=== PATIENT | male | born 1970 | race Caucasian/White ===

== ENCOUNTER 2024-11-21 11:04 | Outpatient (CLI) | payer BC, SELFPAY ==
[2024-11-21 21:42] LABS: Creatinine Urine 94.6 mg/dL
[2024-11-21 21:49] LABS: Microalbumin Creatinine Ratio 40 mg/g (0-30); Microalbumin Urine 4 mg/dL
== END 2024-11-21 11:05 | disposition home or self-care (01) ==
PROVIDERS: PCP Family Medicine; Visit Provider Family Medicine
DX: E13.9 Other specified diabetes mellitus without complications (principal); E78.5 Hyperlipidemia, unspecified; R63.4 Abnormal weight loss; Z12.5 Encounter for screening for malignant neoplasm of prostate
CPT/HCPCS: 80053; 80061; 82043; 82570; 84439; 84443; 87086; G0103

== ENCOUNTER 2025-02-25 13:08 | Outpatient (CLI) | payer BC, SELFPAY | END 2025-02-25 13:09 | disposition home or self-care (01) | LOC: AMB 02-28 10:17 | PROVIDERS: PCP Family Medicine; Visit Provider Family Medicine | DX: R06.09 Other forms of dyspnea (principal) | CPT/HCPCS: A0425; A0427 ==

== ENCOUNTER 2025-02-25 13:54 | Emergency (ER) | payer BC, SELFPAY ==
[2025-02-25] VITALS (18 sets, daily range): BP systolic 101–140; BP diastolic 70–91; PULSE 115–122; RESP 10–40; TEMP 36.4; O2SAT 88–100; BMI 18.6
--- NOTE | 2025-02-25 14:20 | CRLHL7_ITS ---
For Patients: As a result of the Cures Act, medical imaging exams and procedure reports are released immediately into your electronic medical record. You may view this report before your referring provider. If you have questions, please contact your health care provider. INDICATION: Shortness of breath TECHNIQUE: Chest radiograph 1 view COMPARISON: None FINDINGS: Mediastinum: The mediastinum is normal in appearance. The heart silhouette is normal in size and morphology. Lung: Both lungs are unremarkable in appearance. No sign of pleural effusion seen. No pneumothorax is identified. Bone and Soft tissue: Chronic appearing fracture deformities of the left posterior 7th and 8th ribs are noted. IMPRESSION: 1. No acute cardiopulmonary disease is seen. Dictated by Todd Rick MD @ 02/25/2025 3:39:37 PM Dictated by: Todd Rick MD @ 02/25/2025 15:39:40 (Electronically Signed)
[2025-02-25] MEDS: IPRAT-ALBUT 0.5-2.5 MG/3 ML NEB 1 NEB IH (14:29)
[2025-02-25 15:04] LABS: Hematocrit 42.2 % (37.0-53.0); Hemoglobin* 13.6 gm/dL (13.5-17.5); Immature Granulocytes Pct Auto 1.1 %; Mean Corpuscular HGB Conc 32 gm/dL (32-36); Mean Corpuscular Hemoglobin 29 pg (26-34); Mean Corpuscular Volume 89 fL (80-100); RDW Coefficient of Variation % 12.2 % (11.5-15.5); Red Blood Count 4.73 m/uL (4.30-5.90); White Blood Count* 11.51 K/uL (4.50-11.00)
[2025-02-25 15:17] LABS: HCO3 VBG 28 mmol/L (21-28); PCO2 VBG 55 mmHG (40-50); PO2 VBG < 30.1 mmHG (25-47); pH VBG 7.319 (7.32-7.43)
[2025-02-25 15:18] LABS: Chloride* 104 mmol/L (96-114)
[2025-02-25 15:19] LABS: Potassium* 4.4 mmol/L (3.6-5.1); Sodium* 140 mmol/L (135-149)
[2025-02-25 15:21] LABS: Blood Urea Nitrogen* 20 mg/dL (7-30); Creatinine* 0.7 mg/dL (0.5-1.5); Est. Creatinine Clearance* 82.21; Estimated Glomerular Filt Rate 110 ml/min
[2025-02-25 15:22] LABS: Anion Gap 6 mEq/L (7-15); Calcium* 9.4 mg/dL (8.4-10.6); Carbon Dioxide* 30 mmol/L (20-32); Glucose* 55 mg/dL (60-115)
[2025-02-25 15:24] LABS: Immature Granulocytes Abs Auto 0.10 K/uL (0.00-0.30); Lymphocytes Absolute Auto 1.80 K/uL (0.90-2.90); Slide Review Reflex No
--- NOTE | 2025-02-25 15:24 | CRLHL7_ITS ---
For Patients: As a result of the Century Cures Act, medical imaging exams and procedure reports are released immediately into your electronic medical record. You may view this report before your referring provider. If you have questions, please contact your health care provider. INDICATION: SOB, ELEVATED D-DIMER. TECHNIQUE: CT chest PE was acquired with 95 cc Isovue 370 IV contrast. COMPARISON: None. FINDINGS: Heart and vasculature: Contrast opacification of the pulmonary arterial tree is adequate. No sign of pulmonary embolism. Heart size is normal. Thoracic aorta and pulmonary artery are normal in caliber. Lungs and pleura: Scattered sub 5 millimeter pulmonary nodules bilaterally, favored to be infectious inflammatory in etiology.. Central bronchial wall thickening. Mild mucous plugging. No pleural effusions, pleural thickening, or pneumothorax. Lymph nodes/mediastinum: No mediastinal, hilar, or axillary adenopathy. Chest wall: No masses. Upper abdomen: No acute or significant findings. Mild distal esophageal wall thickening. Bones: Unremarkable for age. Multiple old left-sided rib fractures. IMPRESSION: 1. No pulmonary embolism identified. 2. Mild central bronchial wall thickening and mucus plugging may reflect viral illness or other airways disease. Please note that all CT scans at this facility use dose modulation, iterative reconstruction, and/or weight-based dosing when appropriate to reduce radiation dose to as low as reasonably achievable. Dictated by Lennox Arvizu MD @ 02/25/2025 4:29:46 PM (Electronically Signed)
[2025-02-25 15:34] LABS: D Dimer Quantitative* < 0.27 ug/ml (0.00-0.50)
[2025-02-25 15:34] LABS: NT Pro B Type NatriureticPept* 227 pg/mL (See Note)
--- NOTE | 2025-02-25 15:37 | ED.GENADULT ---
HPI - General Adult General Date Seen: 02/25/25 Chief complaint: Shortness of Breath/Dyspnea Stated complaint: Difficulty breathing Time Seen by Provider: 02/25/25 14:08 History of Present Illness HPI narrative: Patient is a 54-year-old here with significant other for evaluation of shortness of breath. He has got a chronic cough and chronic nasal congestion but developed wheezing and shortness of breath today. His partner says that this is typical for him when he gets sick. They tried his inhaler x2 at home but it did not seem to help and so he presents for evaluation. He has type 1 diabetes, says his blood sugars have been running okay. He has not had fevers, denies chest pain. He says he was severely short of breath at home, he felt like he was ?going to take his last breath. He has a diagnosis of mild intermittent asthma in the computer although his partner says that he does not really carry a diagnosis of asthma he just wheezes when he gets sick. Related Data Home Medications ?Medication ?Instructions ?Recorded ?Confirmed aspirin 81 mg tablet,delayed 81 mg PO QDAY 07/28/22 02/25/25 release diphenhydramine HCl 25 mg tablet 50 mg PO BID 11/21/24 02/25/25 (Benadryl Allergy) epinephrine 0.125 mg/actuation 1 puff inhalation Q6H PRN 11/21/24 02/25/25 aerosol inhaler (Primatene Mist) multivitamin 1 tab PO QDAY 11/21/24 02/25/25 Previous Rx's ?Medication ?Instructions ?Recorded insulin aspart U-100 100 unit/mL See Rx Instructions subcut TID #15 11/21/24 (3 mL) subcutaneous pen mL insulin glargine 100 unit/mL 15 unit (0.15 mL) subcut QDAY #20 11/21/24 subcutaneous solution (Lantus mL U-100 Insulin) Diabetic Test Strips #400 ea 11/22/24 blood-glucose meter #1 ea 11/22/24 lancets #400 ea 11/22/24 rosuvastatin 10 mg tablet 10 mg PO QDAY #90 tabs 11/22/24 albuterol sulfate 90 mcg/actuation 2 puff inhalation Q4H PRN 01/08/25 aerosol inhaler shortness of breath or wheezing #8.5 grams Allergies Allergy/AdvReac Type Severity Reaction Status Date / Time No Known Drug Allergies Allergy Verified 02/25/25 15:52 Review of Systems Status of ROS: Reports: 10 or more systems reviewed and unremarkable except as noted in History and below [facility] Social History Smoking Status: Never smoker Do you use any of these nicotine containing products: None Second hand tobacco smoke exposure: No How often do you have a drink containing alcohol: monthly or less AUDIT-C Alcohol total score: 1 Non-prescribed substance use: denies use service: No Exam Narrative: Exam Narrative: Vital signs reviewed In general, alert, nontoxic middle-age male. Thin, somewhat dyspneic. Head: Normocephalic, atraumatic. Eyes: Sclera clear. Pupils equal and reactive. ENT: Mucous membranes moist. Neck: Supple without adenopathy. Heart: Regular rate and rhythm without murmur. Lungs: Breath sounds are diffusely a little decreased and tight. Occasional wheeze. Abdomen: Soft, nontender to palpation. Extremities: Well perfused, pulses intact. No significant edema. Neurologic: Alert, conversant. Speech fluent, face symmetric. Moves all extremities equally. Skin: Warm, dry well perfused. Affect: Normal. Const: Vital Signs, click to edit/add: Vital Signs - 24 hr 02/25/25 14:00 02/25/25 14:02 02/25/25 14:20 Temperature 97.5 F L Pulse Rate Pulse Rate [Right Pulse Oximeter] 116 H 116 H Respiratory Rate 24 28 H Blood Pressure Blood Pressure [Le ft Upper Arm] 140/91 H 140/91 H Pulse Oximetry 97 94 97 Oxygen Delivery Me thod Nasal Cannula Nasal Cannula Oxygen Flow Rate 2 4 02/25/25 14:20 02/25/25 14:30 02/25/25 14:37 Temperature Pulse Rate 122 H Pulse Rate [Right Pulse Oximeter] Respiratory Rate 18 Blood Pressure Blood Pressure [Le ft Upper Arm] Pulse Oximetry 88 97 100 Oxygen Delivery Me thod Room Air Nasal Cannula Nasal Cannula Oxygen Flow Rate 2 2 02/25/25 14:45 02/25/25 15:00 02/25/25 15:15 Temperature Pulse Rate 120 H Pulse Rate [Right Pulse Oximeter] Respiratory Rate 24 21 15 Blood Pressure Blood Pressure [Le ft Upper Arm] Pulse Oximetry 94 Oxygen Delivery Me thod Room Air Oxygen Flow Rate 02/25/25 15:30 02/25/25 15:50 02/25/25 15:51 Temperature Pulse Rate 119 H 119 H Pulse Rate [Right Pulse Oximeter] Respiratory Rate 23 40 H 14 Blood Pressure 120/70 Blood Pressure [Le ft Upper Arm] Pulse Oximetry 94 96 Oxygen Delivery Me thod Room Air Oxygen Flow Rate 02/25/25 16:00 02/25/25 16:01 02/25/25 16:02 Temperature Pulse Rate 117 H 117 H 117 H Pulse Rate [Right Pulse Oximeter] Respiratory Rate 13 14 13 Blood Pressure 101/72 Blood Pressure [Le ft Upper Arm] Pulse Oximetry 95 95 95 Oxygen Delivery Me thod Oxygen Flow Rate 02/25/25 16:15 02/25/25 16:30 02/25/25 16:45 Temperature Pulse Rate 116 H 115 H Pulse Rate [Right Pulse Oximeter] Respiratory Rate 10 L 15 20 Blood Pressure Blood Pressure [Le ft Upper Arm] Pulse Oximetry 95 93 Oxygen Delivery Me thod Oxygen Flow Rate 02/25/25 16:47 Temperature Pulse Rate Pulse Rate [Right Pulse Oximeter] Respiratory Rate Blood Pressure 116/76 Blood Pressure [Le ft Upper Arm] Pulse Oximetry Oxygen Delivery Me thod Room Air Oxygen Flow Rate Course Course ED Course: He had a DuoNeb here, felt improved, was able to come off the oxygen. Remain persistently tachycardic. Did have a chest x-ray which I read as negative, negative per Radiology. I did Elect to do a CT scan to rule out pulmonary embolism given his persistent tachycardia. I reviewed this, I do not see evidence of PE or pneumonia. He does have some thickening of the bronchi. Radiology report reviewed, they note central bronchial thickening and mucous plugging, viral versus inflammatory. Persistent tachycardia likely related to beta agonist therapy. Discussed this with him. He is feeling improved, he is off oxygen and breathing well. Lungs sound improved, he is moving air better. I think his symptoms are likely viral, I think he would benefit from a course of steroids. We did give him prednisone here. Discussed that there does not appear to be anything here that will respond to antibiotics. No evidence of heart failure, pulmonary embolism, pneumonia, or other acute cardiopulmonary process. White count is minimally elevated at 11.5, hemoglobin of 13.6. Blood gas is notable for a pCO2 of 55, pH of 3.19. Plan will be to discharge home with a course of prednisone. Discussed reasons to return such as significantly worsening shortness of breath, high fevers, chest pain, fainting etcetera. Primary care follow-up if not improving over the next few days to week. Albuterol q.4 hours as needed. For his chronic nasal congestion, they have already tried [id number] things like Flonase, Nasacort, Afrin. He has apparently been told that he has a polyp in the past. Recommended ENT follow-up for further evaluation. Vital Signs Vital signs: Initial Vital Signs Pulse Rate 116 H 02/25/25 14:00 Pulse Rhythm Regular 02/25/25 14:00 Respiratory Rate 24 02/25/25 14:00 Respiratory Effort Normal 02/25/25 14:00 Respiratory Depth Shallow 02/25/25 14:00 Blood Pressure 140/91 H 02/25/25 14:00 Blood Pressure Mean 107 H 02/25/25 14:00 Pulse Oximetry 97 02/25/25 14:00 Oxygen Delivery Method Nasal Cannula 02/25/25 14:00 Oxygen Flow Rate 2 02/25/25 14:00 Vital Signs Pulse Rate 116 H 02/25/25 14:00 Respiratory Rate 24 02/25/25 14:00 Blood Pressure 140/91 H 02/25/25 14:00 Pulse Oximetry 97 02/25/25 14:00 Oxygen Delivery Method Nasal Cannula 02/25/25 14:00 Oxygen Flow Rate 2 02/25/25 14:00 Temperature 97.5 F L 02/25/25 14:02 Pulse Rate 115 H 02/25/25 16:30 Respiratory Rate 20 02/25/25 16:45 Blood Pressure 116/76 02/25/25 16:47 Pulse Oximetry 93 02/25/25 16:30 Oxygen Delivery Method Room Air 02/25/25 16:47 Oxygen Flow Rate 2 02/25/25 14:37 Medications Administered Medications: Discontinued Medications Generic Name Dose Route Start Last Admin Trade Name Freq PRN Reason Stop Dose Admin Albuterol/Ipratropium 1 neb 02/25/25 14:20 02/25/25 14:29 Iprat-Albut 0.5-2.5 Mg/3 Ml Neb IH 02/25/25 14:21 1 neb ONCE ONE Administration Prednisone 60 mg 02/25/25 14:20 02/25/25 14:31 Prednisone 20 Mg Tablet PO 02/25/25 14:21 60 mg ONCE ONE Administration Medical Decision Making Lab Data Lab results reviewed: Yes I reviewed the patient's lab results Labs: Lab Results 02/25/25 02/25/25 Range/Units 14:20 14:50 WBC 11.51 H (4.50-11.00) K/uL RBC 4.73 (4.30-5.90) m/uL Hgb 13.6 (13.5-17.5) gm/dL Hct 42.2 (37.0-53.0) % MCV 89 (80-100) fL MCH 29 (26-34) pg MCHC 32 (32-36) gm/dL RDW Coeff of Zakia 12.2 (11.5-15.5) % Plt Count 212 (140-440) K/uL Neut % (Auto) 60.2 (42.0-72.0) % Lymph % (Auto) 15.8 L (20-44) % Randolph % (Auto) 6.2 (0.0-11.0) % Eos % (Auto) 16.1 H (0.0-7.0) % Baso % (Auto) 0.6 (0.0-3.0) % Neut # (Auto) 6.90 (1.7-7.0) K/uL Lymph # (Auto) 1.80 (0.90-2.90) K/uL Randolph # (Auto) 0.70 (0.00-0.90) K/UL Eos # (Auto) 1.90 H (0.00-0.50) K/uL Baso # (Auto) 0.10 (0.00-0.30) K/uL Abs Immat Gran (auto) 0.10 (0.00-0.30) K/uL Imm/Tot Granulo (auto) 1.1 % D-Dimer Quant (PE/DVT) < 0.27 (0.00-0.50) ug/ml VBG pH 7.319 L (7.32-7.43) VBG pCO2 55 H (40-50) mmHG VBG pO2 < 30.1 (25-47) mmHG VBG HCO3 28 (21-28) mmol/L Sodium 140 (135-149) mmol/L Potassium 4.4 (3.6-5.1) mmol/L Chloride 104 (96-114) mmol/L Carbon Dioxide 30 (20-32) mmol/L Anion Gap 6 L (7-15) mEq/L BUN 20 (7-30) mg/dL Creatinine 0.7 (0.5-1.5) mg/dL Estimated Creat Clear 82.21 Estimated GFR 110 ml/min Glucose 55 L (60-115) mg/dL Calcium 9.4 (8.4-10.6) mg/dL C-Reactive Protein < 0.5 L (0.5-1.0) mg/dL NT-Pro-B Natriuret Pep 227 (See Note) pg/mL Imaging Data CT scan - chest: Attestation: I have reviewed the pertinent imaging results. Radiologist's impression: Patient: JESSICA DHILLON Facility: [facility] Site . Site : 1970 Study: CT-Chest Angio PE PROTOCOL W/ 95CC ISOVUE 370-02/25/2025 3:51:47 PM Ordering Physician: Feliz Zamora Final Report: INDICATION: SOB, ELEVATED D-DIMER. TECHNIQUE: CT chest PE was acquired with 95 cc Isovue 370 IV contrast. COMPARISON: None. FINDINGS: Heart and vasculature: Contrast opacification of the pulmonary arterial tree is adequate. No sign of pulmonary embolism. Heart size is normal. Thoracic aorta and pulmonary artery are normal in caliber. Lungs and pleura: Scattered sub 5 millimeter pulmonary nodules bilaterally, favored to be infectious inflammatory in etiology.. Central bronchial wall thickening. Mild mucous plugging. No pleural effusions, pleural thickening, or pneumothorax. Lymph nodes/mediastinum: No mediastinal, hilar, or axillary adenopathy. Chest wall: No masses. Upper abdomen: No acute or significant findings. Mild distal esophageal wall thickening. Bones: Unremarkable for age. Multiple old left-sided rib fractures. IMPRESSION: 1. No pulmonary embolism identified. 2. Mild central bronchial wall thickening and mucus plugging may reflect viral illness or other airways disease. Please note that all CT scans at this facility use dose modulation, iterative reconstruction, and/or weight-based dosing when appropriate to reduce radiation dose to as low as reasonably achievable. Dictated by Lennox Arvizu MD @ 02/25/2025 4:29:46 PM Discharge Plan Discharge Clinical Impression: Bronchitis, Chronic nasal congestion Patient Disposition: Home, Self-Care Condition: Improved Instructions: Acute Bronchitis (ED) Additional Instructions: Prednisone as prescribed. Use your inhaler up to 6 times daily as needed. I would recommend ENT follow-up as discussed for your chronic nasal congestion. Return any time if you have severe or worsening symptoms. Prescriptions: No Action multivitamin Tablet 1 tab PO QDAY diphenhydramine HCl [Benadryl Allergy] 25 mg tablet 50 mg PO BID Primatene Mist 0.125 mg/actuation HFA aerosol inhaler 1 puff inhalation Q6H PRN Rx Instructions: may repeat once after 1 minute insulin glargine [Lantus U-100 Insulin] 100 unit/mL solution 15 unit subcut QDAY Qty: 20 3RF insulin aspart U-100 100 unit/mL (3 mL) insulin pen See Rx Instructions subcut TID Qty: 15 3RF Rx Instructions: 5-10 units before meals subcutaneously three times a day; rosuvastatin 10 mg tablet 10 mg PO QDAY Qty: 90 3RF aspirin 81 mg tablet,delayed release (DR/EC) 81 mg PO QDAY (DME) lancets Misc See Rx Instructions .Route Qty: 400 0RF Rx Instructions: Use to test blood sugar 4 times per day (DME) blood-glucose meter Misc See Rx Instructions .Route Qty: 1 0RF Rx Instructions: Use to test blood sugar 4 times per day (DME) Diabetic Test Strips Misc See Rx Instructions .Route Qty: 400 0RF Rx Instructions: Use to test blood sugar 4 times per day albuterol sulfate 90 mcg/actuation HFA aerosol inhaler 2 puff inhalation Q4H PRN (Reason: shortness of breath or wheezing) Qty: 8.5 5RF Follow Up/Referrals: Dangelo Pierce MD [Primary Care Provider, Family Practice] Stand Alone Forms: [employer] Info Instructions
--- NOTE | 2025-02-25 15:41 | RESP.RT ---
Pt seen and assessed. PT BBS clear, Pulmonary effort is easy and regular at 18. Pt on RA, SPO2 97% CXR noted. VBG noted. Pt reports using inhaler multiple times per day, with increased usage recently. Reports getting up at night to use. Curiously he reports he does not have asthma, but historical notes by primary note that he does. Suggest adding steroid inhaler. Would benefit from a pulmonary work up with spirometry to classify asthma, and prescribe appropriate meds.
== END 2025-02-25 16:49 | disposition home or self-care (01) ==
PROVIDERS: Emergency Provider Emergency Medicine; PCP Family Medicine
DX: J40 Bronchitis, not specified as acute or chronic (principal)
CPT/HCPCS: 36415; 71045; 71275; 80048; 82803; 83880; 84484; 85025; 85379; 86140; 93005; 94761; 99284; 99285; J7512; Q9967

== ENCOUNTER 2025-02-26 10:33 | Emergency (ER) | payer BC, SELFPAY ==
[2025-02-26 10:50] VITALS: PULSE 117; RESP 20; TEMP 36.8; O2SAT 96
--- NOTE | 2025-02-26 11:44 | ED.GENADULT ---
HPI - General Adult General Date Seen: 02/26/25 Chief complaint: Shortness of Breath/Dyspnea Stated complaint: trouble breathing Time Seen by Provider: 02/26/25 11:11 History of Present Illness HPI narrative: 54 yo M with a history of asthma, , history of bronchitis, type 1 diabetes, history of UTIs, congenital right upper extremity deformity, hyperlipidemia, chronic nasal congestion, possible nasal polyps, who returns to the ER today for shortness of breath. History is obtained in part from the patient and in part from his family member. He does have chronic nasal congestion and was post to see an ENT but has not scheduled that appointment yet. It sounds like he has had been managing his nasal congestion for years with Afrin but then had to stop that due to rebound congestion. He has attempted and Flonase but it did not help. His PCP recommended ENT check. His chronic nasal congestion is a problem for him but is not worse than normal lately. Does not have a formal diagnosis of asthma, he says, but has had episodes where he gets wheezing and shortness of breath. He recalls the episode 2 years ago similar to this week where he had shortness of breath, coughing. He required 2 visits to the ER and a course of steroids and inhalers to get better. He also has type 1 DM and has chronic complications including neuropathy and pain. He keeps sugars fairly well controlled though with Lantus and bolus insulin. Since starting on the prednisone yesterday he has noted that his sugars have been up. Sugars were a bit higher than they normally would have been yesterday evening at dinner and were over 300 this morning. His notes that he chronically does not drink enough and often is weak and tired at home. She has been trying to urge him to start drinking more and make small changes for his health start doing small amounts of exercises. He mostly lives a sedentary lifestyle because of his leg pain and neuropathy. He started having wheezing and shortness of breath yesterday was seen in the ER. He received nebulizers in the ER which helped a lot more than his inhalers at home. He was able to discharge home yesterday. Took his morning dose of prednisone this morning. When he woke up he did have some chest tightness shortness of breath but rated at about a 5/10 (rather than a 10/10 yesterday when he called the ambulance). He has had uses inhaler multiple times this morning. He says he is feeling a bit better now down to a 3/10 but knows that he still having some problems. He wanted to come back to the ER today in his own car, rather than wait until his breathing got so bad that he needed an ambulance. He is not running a fever. He does have a cough that is nonproductive. An evaluation of his medical record, he was seen here by Dr. Piper yesterday. He presented for shortness of breath. Per her notes he has a chronic cough and chronic nasal congestion but developed wheezing and shortness of breath yesterday. He used his inhaler twice yesterday before coming to the ER. Blood sugars were running at baseline. Was hypoxic at presentation. In the ER, received DuoNeb, with improvement, and came off oxygen. Had persistent tachycardia. Chest x-ray was obtained was negative for CHF or pneumonia. CT PA was negative for PE. It did show some bronchial thickening. White count was 11, hemoglobin 13, blood gas showed pH at 7.31 and a pCO2 of 55. BNP was 227. CRP was less than 0.5. Discharged home with steroids, albuterol q.4 hours. Related Data Home Medications ?Medication ?Instructions ?Recorded ?Confirmed aspirin 81 mg tablet,delayed 81 mg PO QDAY 07/28/22 02/25/25 release diphenhydramine HCl 25 mg tablet 50 mg PO BID 11/21/24 02/25/25 (Benadryl Allergy) epinephrine 0.125 mg/actuation 1 puff inhalation Q6H PRN 11/21/24 02/25/25 aerosol inhaler (Primatene Mist) multivitamin 1 tab PO QDAY 11/21/24 02/25/25 Previous Rx's ?Medication ?Instructions ?Recorded insulin aspart U-100 100 unit/mL See Rx Instructions subcut TID #15 11/21/24 (3 mL) subcutaneous pen mL insulin glargine 100 unit/mL 15 unit (0.15 mL) subcut QDAY #20 11/21/24 subcutaneous solution (Lantus mL U-100 Insulin) Diabetic Test Strips #400 ea 11/22/24 blood-glucose meter #1 ea 11/22/24 lancets #400 ea 11/22/24 rosuvastatin 10 mg tablet 10 mg PO QDAY #90 tabs 11/22/24 albuterol sulfate 90 mcg/actuation 2 puff inhalation Q4H PRN 01/08/25 aerosol inhaler shortness of breath or wheezing #8.5 grams ipratropium 0.5 mg-albuterol 3 mg 3 ml inhalation Q4-6H PRN #90 mL 02/26/25 (2.5 mg base)/3 mL nebulization soln nebulizer and compressor #1 ea 02/26/25 Allergies Allergy/AdvReac Type Severity Reaction Status Date / Time No Known Drug Allergies [facility]ergy Verified 02/26/25 14:14 [facility] Social History Smoking Status: Never smoker Do you use any of these nicotine containing products: None Second hand tobacco smoke exposure: No How often do you have a drink containing alcohol: monthly or less AUDIT-C Alcohol total score: 1 Non-prescribed substance use: denies use service: No Exam Narrative: Exam Narrative: Constitutional: Appears well-developed and well-nourished. Alert. Conversant. Non toxic. HENT: Head: Atraumatic. Nose: Non print rhinorrhea and nasal congestion with sniffling is chronic per patient. Mouth/Throat: Oral mucosa is clear but dry, not desiccated or cracked.. no trismus. Pharynx normal. Tonsils symmetric. No tonsillar enlargement, erythema, or exudate. Eyes: Conjunctivae normal. EOM normal. Pupils equal, round, and reactive to light. No scleral icterus. Neck: Normal range of motion. Neck supple. No tracheal deviation present. No JVD Cardiovascular: Tachycardic, regular rhythm. No gallop. No friction rub. No murmur heard. Symmetric radial artery pulses Pulmonary/Chest: Effort normal. No stridor. No respiratory distress. No wheezes. No rales. No rhonchi . No tenderness. Ox is 95-99% on room air. Abdominal: Soft.No distension. No mass. No tenderness. No rebound. No guarding. Musculoskeletal: RUE: Chronic chsange LUE: Normal range of motion. No tenderness. No deformity RLE: Normal range of motion. No edema. No tenderness. No deformity LLE: Normal range of motion. No edema. No tenderness. No deformity Lymph: No cervical adenopathy. Neurological: Alert and oriented to person, place, and time. Normal strength. CN II-VII intact. No sensory deficit. GCS eye subscore is 4. GCS verbal subscore is 5. GCS motor subscore is 6. Normal coordination Skin: Skin is warm and dry. No rash noted. No pallor. Normal capillary refill. Psychiatric: Normal mood. Normal affect. Const: Vital Signs, click to edit/add: Vital Signs - 24 hr 02/26/25 10:50 02/26/25 12:00 02/26/25 13:30 Temperature 98.2 F Pulse Rate [Pulse Oximeter] 117 H Pulse Rate [Right Radial] 100 111 H Respiratory Rate 20 22 20 Blood Pressure [Ri ght Upper Arm] 130/72 Pulse Oximetry 96 93 95 Oxygen Delivery Me thod Room Air Room Air Room Air Course Vital Signs Vital signs: Initial Vital Signs Temperature 98.2 F 02/26/25 10:50 Temperature Source Temporal Artery Scan 02/26/25 10:50 Pulse Rate 117 H 02/26/25 10:50 Respiratory Rate 20 02/26/25 10:50 Pulse Oximetry 96 02/26/25 10:50 Oxygen Delivery Method Room Air 02/26/25 10:50 Vital Signs Temperature 98.2 F 02/26/25 10:50 Pulse Rate 117 H 02/26/25 10:50 Respiratory Rate 20 02/26/25 10:50 Pulse Oximetry 96 02/26/25 10:50 Oxygen Delivery Method Room Air 02/26/25 10:50 Temperature 98.2 F 02/26/25 10:50 Pulse Rate 111 H 02/26/25 13:30 Respiratory Rate 20 02/26/25 13:30 Blood Pressure 130/72 02/26/25 13:30 Pulse Oximetry 95 02/26/25 13:30 Oxygen Delivery Method Room Air 02/26/25 13:30 Medications Administered Medications: Discontinued Medications Generic Name Dose Route Start Last Admin Trade Name Freq PRN Reason Stop Dose Admin Sodium Chloride 1,000 mls @ 1,000 mls/hr 02/26/25 12:15 02/26/25 12:37 0.9 % Sodium Chloride 1000 Ml IV 02/26/25 13:14 1,000 mls/hr .Q1H ELIOT Administration Medical Decision Making MDM Narrative Medical decision making narrative: Pleasant 54 year old male returning to the ER today for shortness of breath and wheezing illness. Neurosurgery was seen yesterday and treated for bronchospasm an asthma attack with bronchodilators and steroids. Because of the persistent resting tachycardia he also had workup for pneumonia and PE in that workup was negative yesterday. He was able to discharge home and noted this morning recurrence of shortness of breath. He used his inhaler multiple times and now is feeling quite a bit better. On my initial exam his lung sounds are actually clear. Oxygen sat is 95-99% on room air. However he does have a sinus tachycardia with a rate of 117 on his monitor. Chest x-ray is repeated today in the face of recurring shortness of breath to make sure there is no sign of an evolving pneumonia or other complication. X-ray shows no change. We did check COVID/influenza/RSV PCR. It is negative At this point I suspect that is recurrent shortness of breath was due to recurrent bronchospasm this morning. He had required multiple doses of inhaler at home and did not feel like it was working as good as the neb he received yesterday in the ER. At this point I think he is safe for outpatient management. He is breathing easily. Lungs are clear. Blood gas looks better today than yesterday. Will give him prescriptions for a nebulizer and machine to go with it so he can use that at home as needed. He already has a spacer and has been training techniques for his inhaler. Would have him continue the prednisone for the next few days. He is an insulin-dependent type 1 diabetic and notes significant hyperglycemia this morning. Suspect this is triggered by his steroids. We did do lab workup here which confirms hyperglycemia but no evidence for DKA. Discussed plan of care with the patient and his . They are in agreement. Precautions for return to the ER reviewed. Lab Data Labs: Lab Results 02/26/25 Range/Units 12:40 VBG pH 7.375 (7.32-7.43) VBG pCO2 45 (40-50) mmHG VBG pO2 38.3 (25-47) mmHG VBG HCO3 27 (21-28) mmol/L Sodium 138 (135-149) mmol/L Potassium 4.4 (3.6-5.1) mmol/L Chloride 102 (96-114) mmol/L Carbon Dioxide 26 (20-32) mmol/L Anion Gap 10 (7-15) mEq/L BUN 26 (7-30) mg/dL Creatinine 0.8 (0.5-1.5) mg/dL Estimated GFR 106 ml/min Glucose 329 H (60-115) mg/dL Calcium 9.0 (8.4-10.6) mg/dL SARS-CoV-2 (PCR) Negative SARS-CoV-2 (Negative) Influenza Type A (PCR) Negative PCR FLU A (Negative) Influenza Type B (PCR) Negative PCR FLU B (Negative) RSV (PCR) Negative PCR RSV (Negative) Imaging Data Chest x-ray: Attestation: I have reviewed the pertinent imaging results. Radiologist's impression: Findings/Impression: Cardiovascular and mediastinum: Heart size and vasculature are normal in caliber and appearance. Mediastinum is within normal limits. Lungs and pleural spaces: Mild hyperinflation without pleural effusion or pneumothorax. Mild biapical pleural-parenchymal scarring. Some bronchial wall thickening with slight reticulonodular prominence in the right upper lobe suspicious for an infectious bronchitis/bronchiolitis. This is fairly similar to the prior exam. Discharge Plan Discharge Clinical Impression: Asthma exacerbation, Acute hyperglycemia Patient Disposition: Home, Self-Care Condition: Stable Instructions: Asthma (DC), Wheezing (ED) Additional Instructions: As we discussed, continue the prednisone. He you may need to do higher doses of your short-acting insulin to help take your blood sugar under control for the next few days. Continue to use your inhaler every 4-6 hours as needed. If the inhaler is not helping you can use her nebulizer at home every 4-6 hours as needed. If you have worsening trouble breathing, worsening cough, high fever, or any concerns, please return to the ER right away to be rechecked Please follow-up with your regular doctor next week for recheck. Prescriptions: New ipratropium-albuterol 0.5 mg-3 mg(2.5 mg base)/3 mL solution for nebulization 3 ml inhalation Q4-6H PRNQty: 90 0RF (DME) nebulizer and compressor Device See Rx Instructions .Route Qty: 1 0RF Rx Instructions: As directed No Action multivitamin Tablet 1 tab PO QDAY diphenhydramine HCl [Benadryl Allergy] 25 mg tablet 50 mg PO BID Primatene Mist 0.125 mg/actuation HFA aerosol inhaler 1 puff inhalation Q6H PRN Rx Instructions: may repeat once after 1 minute insulin glargine [Lantus U-100 Insulin] 100 unit/mL solution 15 unit subcut QDAY Qty: 20 3RF insulin aspart U-100 100 unit/mL (3 mL) insulin pen See Rx Instructions subcut TID Qty: 15 3RF Rx Instructions: 5-10 units before meals subcutaneously three times a day; rosuvastatin 10 mg tablet 10 mg PO QDAY Qty: 90 3RF aspirin 81 mg tablet,delayed release (DR/EC) 81 mg PO QDAY (DME) lancets Misc See Rx Instructions .Route Qty: 400 0RF Rx Instructions: Use to test blood sugar 4 times per day (DME) blood-glucose meter Misc See Rx Instructions .Route Qty: 1 0RF Rx Instructions: Use to test blood sugar 4 times per day (DME) Diabetic Test Strips Mis See Rx Instructions .Route Qty: 400 0RF Rx Instructions: Use to test blood sugar 4 times per day albuterol sulfate 90 mcg/actuation HFA aerosol inhaler 2 puff inhalation Q4H PRN (Reason: shortness of breath or wheezing) Qty: 8.5 5RF Follow Up/Referrals: Dangelo Pierce MD [Primary Care Provider, Family Practice] Stand Alone Forms: [employer] Info Instructions
[2025-02-26 12:00] VITALS: PULSE 100; RESP 22; O2SAT 93
--- NOTE | 2025-02-26 12:11 | CRLHL7_ITS ---
For Patients: As a result of the Century Cures Act, medical imaging exams and procedure reports are released immediately into your electronic medical record. You may view this report before your referring provider. If you have questions, please contact your health care provider. Indication: Shortness of breath and tachycardic Technique: Chest 2 views Comparison: Chest x-ray 02/25/2025 Findings/Impression: Cardiovascular and mediastinum: Heart size and vasculature are normal in caliber and appearance. Mediastinum is within normal limits. Lungs and pleural spaces: Mild hyperinflation without pleural effusion or pneumothorax. Mild biapical pleural-parenchymal scarring. Some bronchial wall thickening with slight reticulonodular prominence in the right upper lobe suspicious for an infectious bronchitis/bronchiolitis. This is fairly similar to the prior exam. Bones and soft tissues: Old left-sided rib fractures. Dictated by José Miguel Kaplan MD @ 02/26/2025 1:42:24 PM (Electronically Signed)
[2025-02-26 12:46] LABS: HCO3 VBG 27 mmol/L (21-28); PCO2 VBG 45 mmHG (40-50); PO2 VBG 38.3 mmHG (25-47); pH VBG 7.375 (7.32-7.43)
[2025-02-26 13:04] LABS: Chloride* 102 mmol/L (96-114); Potassium* 4.4 mmol/L (3.6-5.1); Sodium* 138 mmol/L (135-149)
[2025-02-26 13:07] LABS: Anion Gap 10 mEq/L (7-15); Blood Urea Nitrogen* 26 mg/dL (7-30); Calcium* 9.0 mg/dL (8.4-10.6); Carbon Dioxide* 26 mmol/L (20-32); Creatinine* 0.8 mg/dL (0.5-1.5); Estimated Glomerular Filt Rate 106 ml/min; Glucose* 329 mg/dL (60-115)
[2025-02-26 13:30] VITALS: BP 130/72; PULSE 111; RESP 20; O2SAT 95
[2025-02-26 13:35] LABS: PCR FLU A Negative PCR FLU A (Negative); PCR FLU B Negative PCR FLU B (Negative); PCR RSV Negative PCR RSV (Negative); SARS PCR* Negative SARS-CoV-2 (Negative)
== END 2025-02-26 14:20 | disposition home or self-care (01) ==
PROVIDERS: Emergency Provider Emergency Medicine; PCP Family Medicine
DX: J45.901 Unspecified asthma with (acute) exacerbation (principal); R73.9 Hyperglycemia, unspecified
CPT/HCPCS: 36415; 71046; 80048; 82803; 87631; 99283; 99284; J7030

== ENCOUNTER 2025-03-27 09:55 | Outpatient (CLI) | payer BC, SELFPAY ==
--- NOTE | 2025-03-27 10:00 | CRLHL7_ITS ---
For Patients: As a result of the Century Cures Act, medical imaging exams and procedure reports are released immediately into your electronic medical record. You may view this report before your referring provider. If you have questions, please contact your health care provider. Indication: Chronic sinusitis Technique: Noncontrast CT of the paranasal sinuses. Coronal and sagittal reformats. Bone and soft tissue algorithms. Comparison: None Findings: Frontal sinuses: Completely opacified frontal sinuses and recesses. Ethmoid air cells: Completely opacified anterior ethmoid air cells, with near complete opacification of the [id number]-right posterior ethmoid air cells. Sphenoid sinuses: Near complete opacification of the bilateral sphenoid sinuses. Opacified left sphenoethmoidal recess. Maxillary sinuses: Completely opacified maxillary sinuses and ostiomeatal units. Left maxillary sinus chronic osteitis changes. Nasal cavity: Near-complete opacification aside from residual aeration of the right inferior meatus, likely combination of turbinate hypertrophy and lobulated mucosal thickening/nasal polyps. Additional polypoid subtotal opacification of the nasopharynx. Other structures: Multifocal dental disease, with scattered caries and periapical lucencies/periodontal disease.. Orbits and intracranial structures are unremarkable for technique. TMJs appear anatomic.. Clear mastoid air cells. Significant bilateral presumed cerumen. IMPRESSION: 1. Sinonasal polyposis and pansinus disease as detailed. 2. Multifocal dental disease. 3. Significant bilateral presumed cerumen. Please note that all CT scans at this facility use dose modulation, iterative reconstruction, and/or weight-based dosing when appropriate to reduce radiation dose to as low as reasonably achievable. Dictated by Vanessa Delgado MD @ 03/27/2025 11:21:44 AM (Electronically Signed)
== END 2025-03-27 09:56 | disposition home or self-care (01) ==
LOC: CT 09:56
PROVIDERS: PCP Family Medicine; Visit Provider Otolaryngology
DX: J32.9 Chronic sinusitis, unspecified (principal); J33.8 Other polyp of sinus
CPT/HCPCS: 70486

== ENCOUNTER 2025-04-07 11:27 | Emergency (ER) | payer BC, SELFPAY ==
[2025-04-07] VITALS (18 sets, daily range): BP systolic 107–143; BP diastolic 62–91; PULSE 107–117; RESP 10–21; TEMP 36; O2SAT 91–97; BMI 16.7
--- NOTE | 2025-04-07 12:01 | ED.SOB ---
HPI - SOB/Dyspnea General Time Seen by Provider: 12:01 Date Seen: 04/07/25 Chief Complaint: Shortness of Breath/Dyspnea Stated Complaint: shortness of breath Time Seen by Provider: 04/07/25 12:00 Source: patient and family (Fiance) Mode of arrival: ambulatory Limitations: no limitations History of Present Illness HPI Narrative: 54-year-old male with history of asthma, nasal polyps, and type 1 diabetes who presents today with shortness of breath. Patient was seen about a month ago with asthma/bronchitis, started on prednisone and albuterol. He was doing well for couple of weeks but gradually he has increased his use of his inhaler. Initially was doing this about every 4 hours common every 2 hours. The last 4 morning sees woke up very short of breath in with reported oxygen saturations in the 80s. No chest pain, no fever, no lower extremity swelling. Used inhaler nebulizer treatment at home and in feel better so came to the emergency department. Patient is feeling little bit better now. Related Data Home Medications ?Medication ?Instructions ?Recorded ?Confirmed aspirin 81 mg tablet,delayed 81 mg PO QDAY 07/28/22 03/27/25 release diphenhydramine HCl 25 mg tablet 50 mg PO BID 11/21/24 03/27/25 (Benadryl Allergy) epinephrine 0.125 mg/actuation 1 puff inhalation Q6H PRN 11/21/24 03/27/25 aerosol inhaler (Primatene Mist) multivitamin 1 tab PO QDAY 11/21/24 03/27/25 Previous Rx's ?Medication ?Instructions ?Recorded insulin aspart U-100 100 unit/mL See Rx Instructions subcut TID #15 11/21/24 (3 mL) subcutaneous pen mL insulin glargine 100 unit/mL 15 unit (0.15 mL) subcut QDAY #20 11/21/24 subcutaneous solution (Lantus mL U-100 Insulin) Diabetic Test Strips #400 ea 11/22/24 blood-glucose meter #1 ea 11/22/24 lancets #400 ea 11/22/24 rosuvastatin 10 mg tablet 10 mg PO QDAY #90 tabs 11/22/24 albuterol sulfate 90 mcg/actuation 2 puff inhalation Q4H PRN 01/08/25 aerosol inhaler shortness of breath or wheezing #8.5 grams ipratropium 0.5 mg-albuterol 3 mg 3 ml inhalation Q4-6H PRN #90 mL 02/26/25 (2.5 mg base)/3 mL nebulization soln ipratropium 0.5 mg-albuterol 3 mg 3 ml inhalation Q4-6H PRN #90 mL 02/26/25 (2.5 mg base)/3 mL nebulization soln nebulizer accessories #1 ea 02/26/25 nebulizer and compressor #1 ea 02/26/25 nebulizer and compressor #1 ea 02/26/25 montelukast 10 mg tablet 10 mg PO QHS #30 tabs 04/07/25 (Singulair) prednisone 10 mg tablets in a dose See Rx Instructions PO .COMPLEX 04/07/25 pack #21 ea Allergies Allergy/AdvReac Type Severity Reaction Status Date / Time No Known Drug Allergies Allergy Verified 03/27/25 10:23 [facility] Social History Smoking Status: Never smoker Do you use any of these nicotine containing products: None Second hand tobacco smoke exposure: No How often do you have a drink containing alcohol: monthly or less AUDIT-C Alcohol total score: 1 Non-prescribed substance use: denies use service: No Exam Narrative: Exam Narrative: General: Well-developed and well-nourished, no acute distress Head: Atraumatic and normocephalic Eyes: Pupils are equal reactive, extraocular motions intact, conjunctiva clear ENT: External nose and ears are normal, posterior pharynx without erythema or exudate Neck: No midline cervical tenderness, full spontaneous range of motion the neck, trachea midline, no adenopathy Heart: Tachycardic but regular no murmurs or thrills Lungs: Diffuse expiratory wheezes Abdomen: Soft, nontender, nondistended with active bowel sounds Musculoskeletal: No tenderness, deformity, or edema Neurologic: Awake, alert, and oriented x3, no gross focal neurologic deficits, cranial nerves intact as tested Psych: Mood and affect are appropriate Skin: No rashes Const: Vital Signs, click to edit/add: Vital Signs - 24 hr 04/07/25 11:49 04/07/25 13:05 04/07/25 13:06 Temperature 96.8 F L Pulse Rate 113 H 113 H Pulse Rate [Pulse Oximeter] 117 H Respiratory Rate 20 12 14 Blood Pressure 137/85 Blood Pressure [Le ft Upper Arm] 107/62 Pulse Oximetry 94 93 93 Oxygen Delivery Me thod Room Air Room Air 04/07/25 13:15 04/07/25 13:30 04/07/25 13:31 Temperature Pulse Rate 113 H 112 H 112 H Pulse Rate [Pulse Oximeter] Respiratory Rate 10 L 13 19 Blood Pressure 135/81 Blood Pressure [Le ft Upper Arm] Pulse Oximetry 92 95 93 Oxygen Delivery Me thod Room Air Room Air 04/07/25 13:45 04/07/25 14:00 04/07/25 14:01 Temperature Pulse Rate 115 H 110 H Pulse Rate [Pulse Oximeter] Respiratory Rate 14 15 15 Blood Pressure 135/78 Blood Pressure [Le ft Upper Arm] Pulse Oximetry 91 94 Oxygen Delivery Me thod Room Air 04/07/25 14:15 04/07/25 14:30 04/07/25 14:31 Temperature Pulse Rate 111 H 107 H 110 H Pulse Rate [Pulse Oximeter] Respiratory Rate 18 12 17 Blood Pressure 132/81 Blood Pressure [Le ft Upper Arm] Pulse Oximetry 95 97 93 Oxygen Delivery Me thod Room Air 04/07/25 14:45 04/07/25 15:00 04/07/25 15:01 Temperature Pulse Rate 112 H 110 H Pulse Rate [Pulse Oximeter] Respiratory Rate 14 17 21 Blood Pressure 129/83 Blood Pressure [Le ft Upper Arm] Pulse Oximetry 96 95 Oxygen Delivery Me thod Room Air 04/07/25 15:15 04/07/25 15:30 04/07/25 15:31 Temperature Pulse Rate 108 H 110 H 110 H Pulse Rate [Pulse Oximeter] Respiratory Rate 21 16 17 Blood Pressure 143/91 H Blood Pressure [Le ft Upper Arm] Pulse Oximetry 96 94 95 Oxygen Delivery Me thod Room Air Course Course ED Course: Reviewed prior emergency department visit from February 26 when patient was seen for wheezing and shortness of breath, had been seen the day prior for similar and received DuoNeb with improvement and was discharged. Patient presents today with shortness of breath. He has had some ongoing shortness of breath for the last month or so but increased in the last couple of days, especially in the morning. No chest pain, fever, chills. On exam here, oxygen saturation 93-99%, patient is tachycardic but not tachypneic, continues to have some expiratory wheezes. He has an appointment with an pollution control technician with plan to start Dupixent, but not until September. DuoNeb ordered in the emergency department along with plan for steroid burst and taper. Given patient's asthma and nasal polyps, will be started on Singulair as well. Labs and x-ray ordered to evaluate for other cause of increased shortness of breath including pneumonia, heart failure or pulmonary edema. Reevaluation(s) Time of Reevaluation #1: 13:09 Reevaluation #1: Chest x-ray independently interpreted by me with hyperinflation and some old rib fractures on the left, no infiltrate, no hemothorax or pneumothorax. No pleural effusion. Labs independently interpreted by me with normal CBC, respiratory acidosis with venous pH 7.31 and pCO2 56. Will recheck this after nebulizer treatments. Time of Reevaluation #2: 14:01 Reevaluation #2: Labs independently interpreted by me with normal D-dimer, normal basic metabolic panel other than hyperglycemia with glucose 264 but no evidence for DKA, BNP slightly elevated at 437. Will repeat venous blood gas and disposition based on these results. I did review prior emergency department clinic visits and patient is consistently tachycardic. Time of Reevaluation #3: 15:00 Reevaluation #3: Repeat venous blood gas with resolution of previously seen respiratory acidosis, patient maintaining oxygen saturation in the mid 90s, remains tachycardic which is chronic, patient is stable for discharge. Vital Signs Vital signs: Initial Vital Signs Temperature 96.8 F L 04/07/25 11:49 Temperature Source Temporal Artery Scan 04/07/25 11:49 Pulse Rate 117 H 04/07/25 11:49 Respiratory Rate 20 04/07/25 11:49 Blood Pressure 107/62 04/07/25 11:49 Blood Pressure Mean 77 04/07/25 11:49 Blood Pressure Position Sitting 04/07/25 11:49 Pulse Oximetry 94 04/07/25 11:49 Oxygen Delivery Method Room Air 04/07/25 11:49 Vital Signs Temperature 96.8 F L 04/07/25 11:49 Pulse Rate 117 H 04/07/25 11:49 Respiratory Rate 20 04/07/25 11:49 Blood Pressure 107/62 04/07/25 11:49 Pulse Oximetry 94 04/07/25 11:49 Oxygen Delivery Method Room Air 04/07/25 11:49 Temperature 96.8 F L 04/07/25 11:49 Pulse Rate 110 H 04/07/25 15:31 Respiratory Rate 17 04/07/25 15:31 Blood Pressure 143/91 H 04/07/25 15:31 Pulse Oximetry 95 04/07/25 15:31 Oxygen Delivery Method Room Air 04/07/25 15:31 Medications Administered Medications: Discontinued Medications Generic Name Dose Route Start Last Admin Trade Name Freq PRN Reason Stop Dose Admin Albuterol/Ipratropium 1 neb 04/07/25 12:18 04/07/25 12:49 Iprat-Albut 0.5-2.5 Mg/3 Ml Neb IH 04/07/25 12:19 1 neb ONCE ONE Administration Sodium Chloride 500 mls @ 500 mls/hr 04/07/25 14:37 04/07/25 15:50 0.9 % Sodium Chloride 500 Ml IV 04/07/25 15:36 Infused .Q1H ELIOT Infusion Prednisone 40 mg 04/07/25 12:18 04/07/25 12:49 Prednisone 20 Mg Tablet PO 04/07/25 12:19 40 mg ONCE ONE Administration MDM - SOB/Dyspnea Lab Data Labs: Lab Results 04/07/25 04/07/25 Range/Units 12:40 14:50 WBC 9.42 (4.50-11.00) K/uL RBC 4.35 (4.30-5.90) m/uL Hgb 12.4 L (13.5-17.5) gm/dL Hct 38.3 (37.0-53.0) % MCV 88 (80-100) fL MCH 29 (26-34) pg MCHC 32 (32-36) gm/dL RDW Coeff of Zakia 12.2 (11.5-15.5) % Plt Count 200 (140-440) K/uL Neut % (Auto) 58.3 (42.0-72.0) % Lymph % (Auto) 16.3 L (20-44) % Lea % (Auto) 7.2 (0.0-11.0) % Eos % (Auto) 17.1 H (0.0-7.0) % Baso % (Auto) 1.0 (0.0-3.0) % Neut # (Auto) 5.49 (1.7-7.0) K/uL Lymph # (Auto) 1.50 (0.90-2.90) K/uL Lea # (Auto) 0.70 (0.00-0.90) K/UL Eos # (Auto) 1.60 H (0.00-0.50) K/uL Baso # (Auto) 0.09 (0.00-0.30) K/uL Abs Immat Gran (auto) 0.01 (0.00-0.30) K/uL Imm/Tot Granulo (auto) 0.1 % D-Dimer Quant (PE/DVT) 0.17 (0.00-0.50) ug/ml VBG pH 7.310 L 7.373 (7.32-7.43) VBG pCO2 56 H 49 (40-50) mmHG VBG pO2 43.0 41.8 (25-47) mmHG VBG HCO3 28 28 (21-28) mmol/L Sodium 138 (135-149) mmol/L Potassium 4.6 (3.6-5.1) mmol/L Chloride 102 (96-114) mmol/L Carbon Dioxide 29 (20-32) mmol/L Anion Gap 7 (7-15) mEq/L BUN 16 (7-30) mg/dL Creatinine 0.8 (0.5-1.5) mg/dL Estimated Creat Clear 75.36 Estimated GFR 106 ml/min Glucose 264 H (60-115) mg/dL Calcium 8.8 (8.4-10.6) mg/dL Magnesium 2.2 (1.5-2.6) mg/dL NT-Pro-B Natriuret Pep 437 H (See Note) pg/mL Discharge Plan Discharge Clinical Impression: Chronic rhinitis, Asthma with acute exacerbation, Nasal polyp Type 1 diabetes Qualifiers: Diabetes mellitus complication status: with neurologic complications Diabetes mellitus complication detail: with polyneuropathy Qualified Code(s): E10.42 - Type 1 diabetes mellitus with diabetic polyneuropathy Patient Disposition: Home, Self-Care Condition: Stable Instructions: Asthma (ED), Nasal Polyps (ED), Diabetes Type 1: Management (ED) Additional Instructions: Start prednisone and Singulair as prescribed. Keep a close eye on your blood sugars when your prednisone as this will tend to make them increase. Follow-up with primary care provider Activity Level: Activity as Tolerated Discharge Diet: Regular Prescriptions: New montelukast [Singulair] 10 mg tablet 10 mg PO QHS Qty: 30 0RF prednisone 10 mg tablets,dose pack See Rx Instructions .ROUTE .COMPLEX Qty: 21 0RF Rx Instructions: orally per package directions No Action multivitamin Tablet 1 tab PO QDAY diphenhydramine HCl [Benadryl Allergy] 25 mg tablet 50 mg PO BID Primatene Mist 0.125 mg/actuation HFA aerosol inhaler 1 puff inhalation Q6H PRN Rx Instructions: may repeat once after 1 minute insulin glargine [Lantus U-100 Insulin] 100 unit/mL solution 15 unit subcut QDAY Qty: 20 3RF insulin aspart U-100 100 unit/mL (3 mL) insulin pen See Rx Instructions subcut TID Qty: 15 3RF Rx Instructions: 5-10 units before meals subcutaneously three times a day; rosuvastatin 10 mg tablet 10 mg PO QDAY Qty: 90 3RF ipratropium-albuterol 0.5 mg-3 mg(2.5 mg base)/3 mL solution for nebulization 3 ml inhalation Q4-6H PRNQty: 90 0RF (DME) nebulizer and compressor Device See Rx Instructions .Route Qty: 1 0RF Rx Instructions: As directed ([facility] – [place]) nebulizer accessories Kit See Rx Instructions .Route Qty: 1 0RF Rx Instructions: As directed ipratropium-albuterol 0.5 mg-3 mg(2.5 mg base)/3 mL solution for nebulization 3 ml inhalation Q4-6H PRNQty: 90 0RF (DME) nebulizer and compressor Device See Rx Instructions .Route Qty: 1 0RF Rx Instructions: As directed aspirin 81 mg tablet,delayed release (DR/EC) 81 mg PO QDAY (DME) lancets Misc See Rx Instructions .Route Qty: 400 0RF Rx Instructions: Use to test blood sugar 4 times per day (DME) blood-glucose meter Misc See Rx Instructions .Route Qty: 1 0RF Rx Instructions: Use to test blood sugar 4 times per day (DME) Diabetic Test Strips Mis See Rx Instructions .Route Qty: 400 0RF Rx Instructions: Use to test blood sugar 4 times per day albuterol sulfate 90 mcg/actuation HFA aerosol inhaler 2 puff inhalation Q4H PRN (Reason: shortness of breath or wheezing) Qty: 8.5 5RF Follow Up/Referrals: Dangelo Pierce MD [Primary Care Provider, Family Practice] Stand Alone Forms: [facility] Info Instructions Procedures ABG Interpretation ABG Results: 04/07/25 04/07/25 12:40 14:50 VBG pH 7.310 L 7.373 VBG pCO2 56 H 49 VBG pO2 43.0 41.8 VBG HCO3 28 28
--- NOTE | 2025-04-07 12:18 | CRLHL7_ITS ---
For Patients: As a result of the Cures Act, medical imaging exams and procedure reports are released immediately into your electronic medical record. You may view this report before your referring provider. If you have questions, please contact your health care provider. INDICATION: Dyspnea TECHNIQUE: Chest radiograph 2 views COMPARISON: 02/26/2025 FINDINGS: Mediastinum: The mediastinum is normal in appearance. The heart silhouette is normal in size and morphology. Lung: Stable trace apical pleural thickening is noted bilaterally. No pneumothorax is identified. Bone and Soft tissue: Left remote, healed rib fractures are noted. IMPRESSION: 1. No acute cardiopulmonary disease is seen. Dictated by Todd Rick MD @ 04/07/2025 12:43:54 PM Dictated by: Todd Rick MD @ 04/07/2025 12:43:56 (Electronically Signed)
[2025-04-07 12:48] LABS: HCO3 VBG 28 mmol/L (21-28); Hematocrit 38.3 % (37.0-53.0); Hemoglobin* 12.4 gm/dL (13.5-17.5); Immature Granulocytes Abs Auto 0.01 K/uL (0.00-0.30); Immature Granulocytes Pct Auto 0.1 %; Mean Corpuscular HGB Conc 32 gm/dL (32-36); Mean Corpuscular Hemoglobin 29 pg (26-34); Mean Corpuscular Volume 88 fL (80-100); PCO2 VBG 56 mmHG (40-50); PO2 VBG 43.0 mmHG (25-47); RDW Coefficient of Variation % 12.2 % (11.5-15.5); Red Blood Count 4.35 m/uL (4.30-5.90); White Blood Count* 9.42 K/uL (4.50-11.00); pH VBG 7.310 (7.32-7.43)
[2025-04-07 12:49] LABS: Lymphocytes Absolute Auto 1.50 K/uL (0.90-2.90); Slide Review Reflex No
[2025-04-07] MEDS: IPRAT-ALBUT 0.5-2.5 MG/3 ML NEB 1 NEB IH (12:49)
[2025-04-07 13:06] LABS: Chloride* 102 mmol/L (96-114); Sodium* 138 mmol/L (135-149)
[2025-04-07 13:07] LABS: Potassium* 4.6 mmol/L (3.6-5.1)
[2025-04-07 13:09] LABS: Anion Gap 7 mEq/L (7-15); Blood Urea Nitrogen* 16 mg/dL (7-30); Carbon Dioxide* 29 mmol/L (20-32); Creatinine* 0.8 mg/dL (0.5-1.5); Est. Creatinine Clearance* 75.36; Estimated Glomerular Filt Rate 106 ml/min
[2025-04-07 13:10] LABS: Calcium* 8.8 mg/dL (8.4-10.6); Glucose* 264 mg/dL (60-115)
[2025-04-07 13:30] LABS: NT Pro B Type NatriureticPept* 437 pg/mL (See Note)
[2025-04-07 13:31] LABS: D Dimer Quantitative* 0.17 ug/ml (0.00-0.50)
[2025-04-07] MEDS: 0.9 % SODIUM CHLORIDE 500 ML 500 ML IV (14:51)
[2025-04-07 14:53] LABS: HCO3 VBG 28 mmol/L (21-28); PCO2 VBG 49 mmHG (40-50); PO2 VBG 41.8 mmHG (25-47); pH VBG 7.373 (7.32-7.43)
== END 2025-04-07 15:54 | disposition home or self-care (01) ==
PROVIDERS: Emergency Provider Family Medicine; PCP Family Medicine
DX: J45.901 Unspecified asthma with (acute) exacerbation (principal); E10.42 Type 1 diabetes mellitus with diabetic polyneuropathy
CPT/HCPCS: 36415; 71046; 80048; 82803; 83735; 83880; 85025; 85379; 99284; J7030; J7512